=== PATIENT | male | born 1930 | race Caucasian/White ===

== ENCOUNTER 2016-08-19 13:21 | Inpatient (IN) | payer MEDICARE ==
[~2016-08-19] VITALS: Ht 170.2 cm; Wt 101.5 kg
[2016-08-19 14:27] LABS: BLOOD UREA NITROGEN 22 mg/dL (7-18)
[2016-08-19 14:33] LABS: IS PT STATUS REG ER OR PRE ER? YES
[2016-08-19] MEDS ORDERED: ATOR20TA9 PO (15:49)
[2016-08-19] MEDS ORDERED: METF100010 PO (15:49)
[2016-08-19] MEDS ORDERED: GLIP-33 PO (15:49)
[2016-08-19] MEDS ORDERED: ISOS30TA8 PO (15:49)
[2016-08-19] MEDS ORDERED: METO25TA35 PO (15:49)
[2016-08-19] MEDS ORDERED: LOSA50TA6 PO (15:49)
[2016-08-19] MEDS ORDERED: CLOP75TA22 PO (15:49)
[2016-08-19] MEDS ORDERED: FURO40TA6 PO (15:49)
[2016-08-19] MEDS ORDERED: GLIP-142 PO (15:49)
[2016-08-19] MEDS ORDERED: FUROSEMIDE 20 MG/2 ML IV ONE (16:00)
[2016-08-19] MEDS ORDERED: FUROSEMIDE 40 MG/4 ML ONE (16:27)
[2016-08-19] MEDS ORDERED: DOCUSATE 100 MG CAPSULE PO PRN (17:00)
[2016-08-19] MEDS ORDERED: ONDANSETRON 2MG/ML, 2ML IVPush PRN (17:00)
[2016-08-19] MEDS ORDERED: HYDROcodone/APAP 5/325 TABLET PO PRN (17:00)
[2016-08-19] MEDS ORDERED: BISACODYL 10 MG SUPP PR PRN (17:00)
[2016-08-19] MEDS ORDERED: POLYETHYLENE GLYCOL 17 GM PACKET PO PRN (17:00)
[2016-08-19] MEDS ORDERED: morphine SULFATE 10 MG/ML, 1ML IVPush PRN (17:00)
[2016-08-19] MEDS ORDERED: ACETAMINOPHEN 325 MG TABLET PO PRN (17:00)
[2016-08-19] MEDS ORDERED: ASPI-515 PO (18:44)
[2016-08-19] MEDS ORDERED: LATA2.5D3 EACHEYE (18:44)
[2016-08-19] MEDS ORDERED: CHLO25TA PO (18:44)
[2016-08-19 19:27] VITALS: BP 111/61
[2016-08-19] MEDS: SODIUM CHLORIDE FLUSH 3ML SYRINGE IVF SCH (21:00)
[2016-08-19 21:23] VITALS: BP 124/64
[2016-08-19] MEDS: INSULIN ASPART 100 UNITS/ML, PEN SQ-INSULIN SCH (21:25)
[2016-08-19] MEDS: ATORVASTATIN 20 MG TABLET PO SCH (21:25)
[2016-08-19] MEDS: ENOXAPARIN 40 MG/0.4 ML SQ SCH (21:25)
[2016-08-19] MEDS: METOPROLOL TARTRATE 25 MG TABLET PO SCH (21:26)
[2016-08-19 21:35] VITALS: BP 111/61
[2016-08-20 03:15] VITALS: BP 144/78
[2016-08-20 06:04] LABS: BLOOD UREA NITROGEN 22 mg/dL (7-18)
[2016-08-20 08:32] VITALS: BP 122/73
[2016-08-20] MEDS: INSULIN ASPART 100 UNITS/ML, PEN SQ-INSULIN SCH ×4 (10:08→20:18)
[2016-08-20] MEDS: ISOSORBIDE MONONITRATE ER 30 MG TABLET PO SCH (10:11)
[2016-08-20] MEDS: CLOPIDOGREL 75 MG TABLET PO SCH (10:11)
[2016-08-20] MEDS: METOPROLOL TARTRATE 25 MG TABLET PO SCH ×2 (10:11→20:14)
[2016-08-20] MEDS: FUROSEMIDE 40 MG/4 ML IV SCH (10:12)
[2016-08-20] MEDS: SODIUM CHLORIDE FLUSH 3ML SYRINGE IVF SCH ×2 (10:12→20:18)
[2016-08-20] MEDS: LOSARTAN 50MG TABLET PO SCH (10:12)
[2016-08-20 13:25] VITALS: BP 95/55
[2016-08-20 19:45] VITALS: BP 94/51
[2016-08-20] MEDS: ATORVASTATIN 20 MG TABLET PO SCH (20:14)
[2016-08-20] MEDS: ENOXAPARIN 40 MG/0.4 ML SQ SCH (20:18)
[2016-08-21 00:50] VITALS: BP 117/71
[2016-08-21 06:24] LABS: BLOOD UREA NITROGEN 28 mg/dL (7-18)
[2016-08-21] MEDS: INSULIN ASPART 100 UNITS/ML, PEN SQ-INSULIN SCH ×2 (07:00→12:20)
[2016-08-21 07:02] VITALS: BP 124/66
[2016-08-21] MEDS: CLOPIDOGREL 75 MG TABLET PO SCH (08:20)
[2016-08-21] MEDS: LOSARTAN 50MG TABLET PO SCH (08:20)
[2016-08-21] MEDS: METOPROLOL TARTRATE 25 MG TABLET PO SCH (08:20)
[2016-08-21] MEDS: SODIUM CHLORIDE FLUSH 3ML SYRINGE IVF SCH (08:21)
[2016-08-21] MEDS: ISOSORBIDE MONONITRATE ER 30 MG TABLET PO SCH (08:21)
[2016-08-21] MEDS: FUROSEMIDE 40 MG/4 ML IV SCH (08:24)
[2016-08-21] MEDS ORDERED: FURO40TA6 PO (11:03)
[2016-08-21 13:39] VITALS: BP 92/54
== END 2016-08-21 15:10 | disposition home health service (06) | DRG 189 ==
LOC: ED 15:52 → EDIP 15:53 → ED 16:01 → 4WST 18:07 → 4EST 23:27 → DCLOUNGE 08-21 15:10
PROVIDERS: ADMIT Internal Medicine; ATTEND Internal Medicine
DX: J96.21 Acute and chronic respiratory failure with hypoxia (principal); I50.33 Acute on chronic diastolic (congestive) heart failure; E44.0 Moderate protein-calorie malnutrition; I11.0 Hypertensive heart disease with heart failure; D69.6 Thrombocytopenia, unspecified; E11.65 Type 2 diabetes mellitus with hyperglycemia; I25.10 Atherosclerotic heart disease of native coronary artery without angina pectoris; G47.33 Obstructive sleep apnea (adult) (pediatric); H40.9 Unspecified glaucoma; Z82.49 Family history of ischemic heart disease and other diseases of the circulatory system; Z68.35 Body mass index [BMI] 35.0-35.9, adult; Z90.89 Acquired absence of other organs
CPT/HCPCS: 36415; 71010; 80048; 82040; 82962; 83036; 83880; 84484; 85025; 93005; 93306; 93970; 96374; J1650; J1815; J1940

== ENCOUNTER → 2017-07-07 | Outpatient (CLI) | payer MEDICARE, OTHER ==
[~2017-07-07] MED LIST: ASPI-515 PO; ATOR20TA9 PO; CHLO25TA PO; CLOP75TA52 PO; FURO40TA6 PO; GLIP-142 PO; GLIP-33 PO; ISOS30TA8 PO; LATA2.5D3 EACHEYE; LOSA50TA6 PO; METF100010 PO; METO25TA35 PO
== END ==
LOC: PETCFH 12:34
PROVIDERS: ATTEND Family Medicine
DX: C43.9 Malignant melanoma of skin, unspecified (principal); J98.11 Atelectasis
CPT/HCPCS: 78816; A9552

== ENCOUNTER → 2017-08-12 | Outpatient (CLI) | payer OTHER ==
[~2017-08-12] MED LIST changes: +CHOL2000 PO; +FISH1CAP PO; +FURO20TA3 PO; +MULT-658 PO; +SITA100T PO
[2017-08-12 13:38] LABS: BASOPHILS # (AUTO) 0.04 x10^3/uL (0-0.1); BASOPHILS % (AUTO) 1 % (0-1); EOSINOPHILS # (AUTO) 0.18 x10^3/uL (0-0.4); EOSINOPHILS % (AUTO) 2 % (1-7); LYMPHOCYTES # (AUTO) 1.03 x10^3/uL (1-3.4); LYMPHOCYTES % (AUTO) 11 % (22-44); MD NO; MEAN CORPUSCULAR HEMOGLOBIN 30.5 pg (27.5-34.5); MEAN CORPUSCULAR HGB CONC 33.3 g/dL (33.2-36.2); MEAN CORPUSCULAR VOLUME 91.4 fL (81-97); MEAN PLATELET VOLUME 11.2 fL (7.4-10.4); MONOCYTES # (AUTO) 0.77 x10^3/uL (0.2-0.8); MONOCYTES % (AUTO) 8 % (2-9); NEUTROPHILS # (AUTO) 7.13 x10^3/uL (1.8-6.8); NEUTROPHILS % (AUTO) 78 % (42-75); PLATELET COUNT 146 x10^3/uL (130-400); RED BLOOD COUNT 4.63 x10^6/uL (4.38-5.82); RED CELL DISTRIBUTION WIDTH 14.3 % (9.4-14.8)
[2017-08-12 13:43] LABS: INTERNATIONAL NORMALIZED RATIO 0.94 (0.93-1.1); PROTHROMBIN TIME 9.8 Seconds (9.6-11.5)
[2017-08-12 13:49] LABS: ALBUMIN 3.5 g/dL (3.4-5.0); ANION GAP 7 mmol/L (5-15); CALCIUM 9.5 mg/dL (8.5-10.1); CHLORIDE 110 mmol/L (98-107)
[2017-08-12 13:52] LABS: ALANINE AMINOTRANSFERASE 30 U/L (12-78); ALKALINE PHOSPHATASE 43 U/L (45-117); BILIRUBIN,TOTAL 0.6 mg/dL (0.2-1.0); CREATININE 1.42 mg/dL (0.7-1.3); TOTAL PROTEIN 6.8 g/dL (6.4-8.2)
== END | disposition home or self-care (01) ==
LOC: STAR 12:12
PROVIDERS: ATTEND Surgery
DX: Z01.818 Encounter for other preprocedural examination (principal); J98.11 Atelectasis; R94.31 Abnormal electrocardiogram [ECG] [EKG]; I10 Essential (primary) hypertension; E11.9 Type 2 diabetes mellitus without complications
CPT/HCPCS: 36415; 71046; 80053; 83615; 85025; 85610; 93005

== ENCOUNTER 2017-08-19 13:20 | Day surgery (SDC) | payer OTHER ==
[~2017-08-19] VITALS: Ht 162.6 cm; Wt 95.5 kg
[~2017-08-19 13:20] MED LIST changes: +PROPOFOL 10 MG/ML, 20ML ONE
[2017-08-19 14:18] VITALS: BP 131/80
[2017-08-19] MEDS ORDERED: LACTATED RINGERS 1,000 ML IV SCH (14:25)
[2017-08-19] MEDS ORDERED: EPINEPHRINE 1 MG/ML, 1ML ONE (14:53)
[2017-08-19] MEDS ORDERED: BUPIVACAINE/PF 0.5% ONE (14:53)
[2017-08-19] MEDS ORDERED: MIDAZOLAM 1 MG/ML, 2ML ONE (15:03)
[2017-08-19] MEDS ORDERED: FENTANYL PF 100 MCG/2ML ONE (15:29)
[2017-08-19] MEDS ORDERED: hydrALAzine 20 MG/ML, 1ML IV PRN (16:00)
[2017-08-19] MEDS ORDERED: EPHEDRINE 50 MG/ML, 1ML IVPush PRN (16:00)
[2017-08-19] MEDS ORDERED: HYDROcodone/APAP 7.5-325MG/15ML UDC PO PRN (16:00)
[2017-08-19] MEDS ORDERED: ACETAMINOPHEN 325 MG TABLET PO PRN (16:00)
[2017-08-19] MEDS ORDERED: ALBUTEROL SULFATE 2.5 MG/3 ML NPPB PRN (16:00)
[2017-08-19] MEDS ORDERED: ONDANSETRON ODT 8 MG PO PRN (16:00)
[2017-08-19] MEDS ORDERED: FENTANYL PF 100 MCG/2ML IV PRN (16:00)
[2017-08-19] MEDS ORDERED: METOPROLOL 1 MG/ML, 5ML IV PRN (16:00)
[2017-08-19] MEDS ORDERED: LABETALOL 5MG/ML, 20ML IV PRN (16:00)
== END 2017-08-19 17:50 ==
LOC: OR 13:20
PROVIDERS: ATTEND Surgery
DX: C43.62 Malignant melanoma of left upper limb, including shoulder (principal); I12.9 Hypertensive chronic kidney disease with stage 1 through stage 4 chronic kidney disease, or unspecified chronic kidney disease; E11.22 Type 2 diabetes mellitus with diabetic chronic kidney disease; N18.9 Chronic kidney disease, unspecified; I25.10 Atherosclerotic heart disease of native coronary artery without angina pectoris; Z87.39 Personal history of other diseases of the musculoskeletal system and connective tissue; Z79.82 Long term (current) use of aspirin; G47.33 Obstructive sleep apnea (adult) (pediatric)
CPT/HCPCS: 23077; 82962; 88307; J0171; J2250; J2704; J3010; J3490; J7120